=== PATIENT | female | born 1935 | race African-American/Black ===

== ENCOUNTER 2017-07-21 06:04 | Day surgery (SDC) | payer MEDICARE ==
--- NOTE | 2017-07-20 11:33 | Pre-Procedure Note/Attestation ---
Pre-Procedure Note/Attestation Complete Prior to Procedure Planned Procedure: right Procedure Narrative: PHACO WITH iol Indications for Procedure Pre-Operative Diagnosis: CATARACT Attestation I attest that I discussed the nature of the procedure; its benefits; risks and complications; and alternatives (and the risks and benefits of such alternatives ), prior to the procedure, with the patient (or the patient's legal field sales representative). I attest that, if there was a reasonable possibility of needing a blood transfusion, the patient (or the patient's legal field sales representative) was given the [facility] standardized written summary, pursuant to the [place] Blood Safety Act ([place] Health and Safety Code # 1645, as amended). I attest that I re-evaluated the patient just prior to the surgery and that there has been no change in the patient's H&P, except as documented below: TABITHA PASCUAL Jul 20, 2017 11:33
--- NOTE | 2017-07-20 13:45 | Opthalmology H&P ---
Ophthalmology H&P H&P Chief Complaint: decreased vision in right eye HPI Vision Affects Ability to: read, focus/use eyes together, manage personal affairs HPI Narrative blurry vision Exam Visual Acuity: OD: 20/60 OS: 20/40 Tension: OD: 16 OS: 16 Eye Exam: normal OU: external exam, palpebral fissure-width, marginal reflex distance, levator function, corneas, anterior chambers, findings: lens - OD; ns OS: ns, fundus exam - OD: 0.5 cd OS: 0.5 cd Assessment/Plan Diagnosis: (1) Cataract Treatment Plan: cataract extraction w/ lens implant Goals of Treatment: improvement of vision, enhance quality of life Attestation Attestation The risks and benefits of the surgery as well as alternative procedures were explained to the patient in detail. TABITHA PASCUAL Jul 20, 2017 13:45
[2017-07-21] VITALS (10 sets, daily range): BP systolic 122–158; BP diastolic 51–74
[~2017-07-21] VITALS: Ht 157.5 cm; Wt 63.5 kg
[2017-07-21] MEDS ORDERED: Akten 3.5% 1ml Btl RIGHT EYE ONE (07:00)
[2017-07-21] MEDS: Ketorolac Tromethamine Opth 5ml Soln RIGHT EYE SCH ×3 (07:15→07:33)
[2017-07-21] MEDS: Tropicamide 1% Opth 15ml Soln RIGHT EYE SCH ×3 (07:15→07:33)
[2017-07-21] MEDS: Cyclopentolate 1% Opth Sol 2ml RIGHT EYE SCH ×3 (07:16→07:33)
[2017-07-21] MEDS: Phenylephrine 10% Opth Soln 5ml RIGHT EYE SCH ×3 (07:16→07:33)
[2017-07-21] MEDS: Tobramycin Op Soln 0.3% 5ml RIGHT EYE SCH ×3 (07:16→07:33)
[2017-07-21] MEDS ORDERED: PRAVASTATIN SOD20 M1 ORAL (07:57)
[2017-07-21] MEDS ORDERED: ALEVE220 M2 PO (07:57)
[2017-07-21] MEDS ORDERED: CLOPIDOGREL75 MG ORAL (07:57)
[2017-07-21] MEDS ORDERED: HYDRALAZINE HC100 MG ORAL (07:57)
[2017-07-21] MEDS ORDERED: LATANOPROST2.5 ML BOTH EYES (07:57)
[2017-07-21] MEDS ORDERED: AMLODIPINE BESY10 MG ORAL (07:57)
[2017-07-21] MEDS ORDERED: ANASTROZOLE1 MG PO (07:57)
[2017-07-21] MEDS ORDERED: EPINEPHrine 1mg/1ml Amp ONE (08:30)
[2017-07-21] MEDS ORDERED: Pred Forte 1% Opth Susp 1ml ONE (08:30)
[2017-07-21] MEDS ORDERED: fentaNYL 100 mcg/2 mL IV ONE (08:30)
[2017-07-21] MEDS ORDERED: Maxitrol Opth Oint 3.5gm ONE (08:30)
[2017-07-21] MEDS ORDERED: LR 1000ml ONE (08:30)
[2017-07-21] MEDS ORDERED: Propofol 200mg/20ml IV ONE (08:30)
[2017-07-21] MEDS ORDERED: NS Irrig 1000ml ONE (08:30)
[2017-07-21] MEDS ORDERED: Dexamethasone 4mg/ml vial ONE (08:30)
[2017-07-21] MEDS ORDERED: Tetracaine 0.5% Opth 4ml Soln ONE (08:30)
[2017-07-21] MEDS ORDERED: Midazolam 2mg/2ml Inj ONE (08:30)
[2017-07-21] MEDS ORDERED: BSS 500ml btl ONE (08:30)
[2017-07-21] MEDS ORDERED: Sterile Water Irrig 1000ml IRRIG ONE (08:30)
[2017-07-21] MEDS ORDERED: LR 1000ml 1,000 ML IVLG SCH (08:49)
--- NOTE | 2017-07-21 08:49 | Anethesia Preoperative Eval ---
Anesthesia Pre-op PMH/ROS General Date of Evaluation: Jul 21, 2017 Time of Evaluation: 08:21 Anesthesiologist: Cecily ASA Score: ASA 3 Mallampati Score Class I : Soft palate, uvula, fauces, pillars visible Class II: Soft palate, uvula, fauces visible Class III: Soft palate, base of uvula visible Class IV: Only hard plate visible Mallampati Classification: Class II Surgeon: Ainsley Diagnosis: R eye cataract Surgical Procedure: Janett cataract extraction Anesthesia History: none Family History: no anesthesia problems Allergies: Coded Allergies: PATTIE INHIBITORS (Verified Allergy, Mild, 07/21/17) tongue swells Medications: see eMAR Past Medical History Cardiovascular: Reports: HTN, Denies: CAD, [place], valve dz, arrhythmia, other Pulmonary: Denies: asthma, COPD, ANUP, other Gastrointestinal/Genitourinary: Reports: GERD, Denies: CRI, ESRD, other Neurologic/Psychiatric: Reports: depression/anxiety, Denies: dementia, CVA, TIA, other Endocrine: Denies: DM, hypothyroidism, steroids, other HEENT: Reports: cataract (L), cataract (R), glaucoma - bilateral, Denies: [place] (L), [place] (R), other Hematology/Immune: Reports: other - R breast CA s/p Sx, Denies: anemia, DVT, bleeding disorder Musculoskeletal/Integumentary: Reports: DJD, Denies: OA, RA, DDD, edema, other PMH Narrative: as above PSxH Narrative: see H&P Anesthesia Pre-op Phys. Exam Physician Exam Last Vital Signs Date Time Temp Pulse Resp B/P (MAP) Pulse Ox O2 Delivery O2 Flow Rate FiO2 07/21/17 07:27 97.3 59 18 123/51 100 Room Air Constitutional: NAD Neurologic: CN 2-12 intact Cardiovascular: RRR, no M/R/G Respiratory: CTA Gastrointestinal: S/NT/ND Airway Exam Mallampati Score: Class II MO: limited Neck: stiff ROM: limited Teeth: missing Dentures: upper, lower Anesthesia Pre-op A/P Labs see chart Risk Assessment & Plan Assessment: ASA 3 Plan: MAC Status Change Before Surgery: No Pre-Antibiotics Drug: none PRAFUL CARLSON M.D. Jul 21, 2017 08:48
[2017-07-21] MEDS ORDERED: DiphenhydrAMINE 50mg/ml Inj IVP PRN (09:00)
[2017-07-21] MEDS ORDERED: fentaNYL 100 mcg/2 mL IV PRN (09:00)
--- NOTE | 2017-07-21 09:34 | Immediate Post-Op Evaluation ---
Immediate Post-Op Evalulation Immediate Post-Op Evalulation Procedure: R eye cataract extraction with IOL Date of Evaluation: Jul 21, 2017 Time of Evaluation: 09:02 IV Fluids: 200 Blood Products: none Estimated Blood Loss: none Urinary Output: none Blood Pressure Systolic: 154 Blood Pressure Diastolic: 76 Pulse Rate: 70 Respiratory Rate: 20 O2 Sat by Pulse Oximetry: 99 Temperature (Fahrenheit): 97.6 Pain Score (1-10): 1 Nausea: No Vomiting: No Complications none Patient Status: awake, patent, none Hydration Status: adequate PRAFUL CARLSON M.D. Jul 21, 2017 09:34
--- NOTE | 2017-07-21 13:40 | 48 Hour Post Anesthesia Eval ---
Post Anesthesia Evaluation Procedure: R eye cataract extraction with IOL Date of Evaluation: Jul 21, 2017 Time of Evaluation: 10:24 Blood Pressure Systolic: 158 0: 74 Pulse Rate: 64 Respiratory Rate: 20 Temperature (Fahrenheit): 97.6 O2 Sat by Pulse Oximetry: 98 Airway: patent Nausea: No Vomiting: No Pain Intensity: 1 Hydration Status: adequate Cardiopulmonary Status: stable Mental Status/LOC: patient returned to baseline Follow-up Care/Observations: n/a Post-Anesthesia Complications: none Follow-up care needed: ready to discharge PRAFUL CARLSON M.D. Jul 21, 2017 13:40
[2017-07-21] MEDS ORDERED: Pilocarpine 2% Opth 15ml Soln ONE (15:04)
[2017-07-21] MEDS ORDERED: Povidone-Iodine 5% opth solution ONE (15:04)
[2017-07-21] MEDS ORDERED: Sodium Hyaluronate 14 mg/ml 0.85ml ONE (15:04)
[2017-07-21] MEDS ORDERED: BSS 15ml BTL ONE (15:04)
--- NOTE | 2017-07-23 18:40 | Cardiology Report ---
APPROVED REPORT EKG Measurement Heart [id number] NM 166P64 [id number] Sinus bradycardia Left bundle branch block Abnormal ECG
--- NOTE | 2017-07-24 09:12 | Brief Operative Note ---
Immediate Post Operative Note Operative Note Chief Complaint: blurry vison, OD Pre-op Diagnosis: CATARACT, OD Procedure: phaco with IOL, OD Post-op Diagnosis: Pseudophakia Post-op Diagnosis: same as pre-op Findings: consistent w/pre-op dx studies Surgeon: Ainsley Anesthesiologist: Cecily Anesthesia: MAC Specimen: none Complications: none Condition: stable Fluids: LR Estimated Blood Loss: none Drains: none Implant(s) used?: Yes TABITHA PASCUAL Jul 24, 2017 09:12
--- NOTE | 2017-07-25 09:10 | Operative Note - PDOC ---
Operative Note Operative Note Date of Operation/Procedure: Jul 21, 2017 Chief Complaint: blurry vison, OD Pre-op Diagnosis: CATARACT, OD Procedure: phaco with IOL, OD Post-op Diagnosis: Pseudophakia Post-op Diagnosis: same as pre-op Operative Findings: consistent w/pre-op dx studies Surgeon: Ainsley Anesthesiologist: Cecily Anesthesia: MAC Specimen: none Complications: none Condition: stable Fluids: LR Estimated Blood Loss: none Drains: none Implant(s) used?: Yes Indications for Procedure cataract Description of Procedure This patient has been complaining visually significant cataract in the affected eye with the best corrected visual acuity under moderate glare conditions worse. The patient complains of difficulties with glare in performing activities of daily living and wants to manage personal affairs with comfort and accuracy and see well enough to move with safety at home and outdoors. The risks, benefits and alternatives of the procedure were discussed with the patient in the office prior to scheduling surgery. All questions from the patient were answered after the surgical procedure was explained in detail. The risks of the procedure as explained to the patient include, but are not limited to, pain, infection, bleeding, loss of vision, retinal detachment, need for further surgery, loss of lens nucleus, double vision, etc. Alternative procedures were discussed which include, to do nothing or seek a second opinion. Informed consent for this procedure was obtained from the patient. The patient was referred to a primary care physician for a cardiopulmonary clearance prior to surgery, after proper evaluation was done patient was properly scheduled for outpatient surgery. The patient was brought to the operating room where the anesthesiologist established I.V. lines and cardiac monitoring leads. Mild intravenous sedation was administered. The patient was then prepared with a 5% solution of povidone- iodine to the conjunctival fornix and lashes, and a 5% solution of povidone- iodine to the lids and periorbital skin. The patient was then draped in the usual sterile fashion. A lid speculum was then placed in the operative eye. A keratome blade was then used to create a biplanar incision into the anterior chamber. Viscoelastics was then instilled into the anterior chamber. A capsulorrhexis was then fashioned with an utrata forceps. BSS and a cannula were then used to hydrodissect and hydro delineate the lens. Paracentesis incision was made at 3 o'clock with sharp blade. The phacoemulsification unit, after being properly adjusted and tested, was then used to emulsify the nucleus followed by aspiration and irrigation of residual cortical material using the aspiration unit. Healon was then instilled into the anterior chamber. The corneal wound was then enlarged to the size of the optic with the roland keratome blade. The intraocular lens was then inspected for right power and size and thought to be satisfactory. Then the lens was gently placed in the capsular bag. Positioning within the capsular bag was confirmed by direct visualization. Optic centration was accomplished with a Sinskey hook. Viscoelastics was removed from the anterior chamber using the irrigation and aspiration unit. The corneal wound was then tested for leaks and none were found. The lid speculum were then removed. Sponge and needle counts were correct. An eye patch and shield were placed over the operative eye. The patient was taken to the recovery room in stable condition. There were no complications. The patient tolerated the procedure well. The patient was then transferred to the ambulatory surgery unit in stable and satisfactory condition , was given detailed written instructions and asked to follow up in the office the next day. Dictated & Transcribed: [facility] Kiley MCGUIRE JAMES Jul 25, 2017 09:10
== END 2017-07-21 10:30 | disposition home or self-care (01) ==
LOC: SUR 06:04 → EDBD 08:30 → SUR 09:45
DX: H26.9 Unspecified cataract (principal); I10 Essential (primary) hypertension; K21.9 Gastro-esophageal reflux disease without esophagitis; F32.9 Major depressive disorder, single episode, unspecified; F41.9 Anxiety disorder, unspecified; M19.90 Unspecified osteoarthritis, unspecified site; H40.9 Unspecified glaucoma; E78.2 Mixed hyperlipidemia; I49.9 Cardiac arrhythmia, unspecified; Z86.73 Personal history of transient ischemic attack (TIA), and cerebral infarction without residual deficits; I44.7 Left bundle-branch block, unspecified; R00.1 Bradycardia, unspecified
CPT/HCPCS: 66984; 93005; J0171; J1100; J2250; J2704; J3010; J3370; J7120; V2632; 94003; 94150

== ENCOUNTER 2018-06-11 05:57 | Day surgery (SDC) | payer MEDICARE ==
--- NOTE | 2018-06-06 16:45 | Pre-Procedure Note/Attestation ---
Pre-Procedure Note/Attestation Complete Prior to Procedure Planned Procedure: left Procedure Narrative: phaco with IOL Indications for Procedure Pre-Operative Diagnosis: cataract Attestation I attest that I discussed the nature of the procedure; its benefits; risks and complications; and alternatives (and the risks and benefits of such alternatives ), prior to the procedure, with the patient (or the patient's legal territory service representative). I attest that, if there was a reasonable possibility of needing a blood transfusion, the patient (or the patient's legal territory service representative) was given the [facility] standardized written summary, pursuant to the [place] Blood Safety Act ([place] Health and Safety Code # 1645, as amended). I attest that I re-evaluated the patient just prior to the surgery and that there has been no change in the patient's H&P, except as documented below: TABITHA PASCUAL Jun 06, 2018 16:45
--- NOTE | 2018-06-06 16:46 | Opthalmology H&P ---
Ophthalmology H&P H&P Chief Complaint: decreased vision in left eye HPI Vision Affects Ability to: read, focus/use eyes together, manage personal affairs HPI Narrative blurry vision Exam Visual Acuity: OD: 20/70 OS: 20/50 Tension: OD: 14 OS: 16 Eye Exam: normal OU: external exam, palpebral fissure-width, marginal reflex distance, levator function, corneas, anterior chambers, fundus exam; findings: lens - OD: IOL OS: ns Assessment/Plan Diagnosis: (1) Nuclear age-related cataract, left eye Treatment Plan: cataract extraction w/ lens implant Goals of Treatment: improvement of vision, enhance quality of life Attestation Attestation The risks and benefits of the surgery as well as alternative procedures were explained to the patient in detail. TABITHA PASCUAL Jun 06, 2018 16:46
[2018-06-11] VITALS (8 sets, daily range): BP systolic 113–139; BP diastolic 62–76
[~2018-06-11] VITALS: Ht 157.5 cm; Wt 64.4 kg
[~2018-06-11 05:57] MED LIST: ALEVE220 M2 PO; AMLODIPINE BESY10 MG ORAL; ANASTROZOLE1 MG PO; CLOPIDOGREL75 MG ORAL; HYDRALAZINE HC100 MG ORAL; LATANOPROST2.5 ML BOTH EYES; PRAVASTATIN SOD20 M1 ORAL
[2018-06-11] MEDS ORDERED: Akten 3.5% 1ml Btl LEFT EYE ONE (07:00)
[2018-06-11] MEDS ORDERED: Proparacaine 0.5% Opth Soln 15ml LEFT EYE ONE (07:00)
[2018-06-11] MEDS ORDERED: Tetracaine 0.5% Opth 4ml Soln LEFT EYE ONE (07:00)
[2018-06-11] MEDS ORDERED: Pred Forte 1% Opth Susp 1ml ONE (07:00)
[2018-06-11] MEDS ORDERED: Pilocarpine 2% Opth 15ml Soln ONE (07:00)
[2018-06-11] MEDS ORDERED: Diclofenac Sod 0.1% Op Soln LEFT EYE SCH (07:00)
[2018-06-11] MEDS ORDERED: Dexamethasone 4mg/ml vial ONE (07:00)
[2018-06-11] MEDS ORDERED: Maxitrol Opth Oint 3.5gm ONE (07:00)
[2018-06-11] MEDS: Cyclopentolate 1% Opth Sol 2ml LEFT EYE SCH ×3 (07:31→07:59)
[2018-06-11] MEDS: Tropicamide 1% Opth 15ml Soln LEFT EYE SCH ×3 (07:32→07:59)
[2018-06-11] MEDS: Phenylephrine 10% Opth Soln 5ml LEFT EYE SCH ×3 (07:32→07:59)
[2018-06-11] MEDS: Tobramycin Op Soln 0.3% 5ml LEFT EYE SCH ×3 (07:33→07:59)
[2018-06-11] MEDS ORDERED: NORCO 7.5/3251 EA ORAL (08:27)
[2018-06-11] MEDS ORDERED: ASPIR 8181 MG ORAL (08:27)
[2018-06-11 08:28] LABS: EOSINOPHILS % (AUTO) 4.3 % (0.0-3.0); HEMATOCRIT 43.6 % (37.0-47.0); LYMPHOCYTES % (AUTO) 51.8 % (20.0-45.0); MEAN CORPUSCULAR VOLUME 90 FL (80-99); NEUTROPHILS % (AUTO) 35.9 % (45.0-75.0); PLATELET COUNT 250 K/UL (150-450); RED BLOOD COUNT 4.86 M/UL (4.20-5.40); RED CELL DISTRIBUTION WIDTH 12.7 % (11.6-14.8); WHITE BLOOD COUNT 4.6 K/UL (4.8-10.8)
[2018-06-11 08:37] LABS: ANION GAP 8 mmol/L (5-15); BLOOD UREA NITROGEN 9 mg/dL (7-18); CALCIUM 9.7 MG/DL (8.5-10.1); CARBON DIOXIDE 28 MMOL/L (21-32); CHLORIDE 107 MMOL/L (98-107); CREATININE 0.7 MG/DL (0.55-1.30); POTASSIUM 4.9 MMOL/L (3.5-5.1); SODIUM 143 MMOL/L (136-145)
[2018-06-11] MEDS ORDERED: LR 1000ml 1,000 ML IVLG SCH (09:25)
--- NOTE | 2018-06-11 09:25 | Anethesia Preoperative Eval ---
Anesthesia Pre-op PMH/ROS General Date of Evaluation: Jun 11, 2018 Time of Evaluation: 09:22 Anesthesiologist: Cecily ASA Score: ASA 3 Mallampati Score Class I : Soft palate, uvula, fauces, pillars visible Class II: Soft palate, uvula, fauces visible Class III: Soft palate, base of uvula visible Class IV: Only hard plate visible Mallampati Classification: Class II Surgeon: Ainsley Diagnosis: L eye cataract Surgical Procedure: L eye cataract extraction Anesthesia History: none Family History: no anesthesia problems Allergies: Coded Allergies: PATTIE INHIBITORS (Verified Allergy, Mild, 07/21/17) tongue swells Medications: see eMAR Past Medical History Cardiovascular: Reports: HTN; Denies: CAD, [place], valve dz, arrhythmia, other Pulmonary: Denies: asthma, COPD, ANUP, other Gastrointestinal/Genitourinary: Reports: GERD; Denies: CRI, ESRD, other Neurologic/Psychiatric: Reports: depression/anxiety; Denies: dementia, CVA, TIA, other Endocrine: Denies: DM, hypothyroidism, steroids, other HEENT: Reports: cataract (L), cataract (R), glaucoma Hematology/Immune: Reports: other - Breast CA s/p Sx; Denies: anemia, DVT, bleeding disorder Musculoskeletal/Integumentary: Reports: DJD; Denies: OA, RA, DDD, edema, other PMH Narrative: as above PSxH Narrative: see chart Anesthesia Pre-op Phys. Exam Physician Exam Last Vital Signs Date Time Temp Pulse Resp B/P (MAP) Pulse Ox O2 Delivery O2 Flow Rate FiO2 06/11/18 08:21 Room Air 06/11/18 07:41 97.8 57 20 139/76 (97) 100 97.8 Constitutional: NAD Neurologic: CN 2-12 intact Cardiovascular: RRR, no M/R/G Respiratory: CTA Gastrointestinal: S/NT/ND Airway Exam Mallampati Score: Class II MO: limited Neck: stiff ROM: limited Teeth: missing Dentures: no upper, no lower Anesthesia Pre-op A/P Labs Hematology Test 06/11/18 07:15 White Blood Count 4.6 K/UL (4.8-10.8) L Red Blood Count 4.86 M/UL (4.20-5.40) Hemoglobin 15.0 G/DL (12.0-16.0) Hematocrit 43.6 % (37.0-47.0) Mean Corpuscular Volume 90 FL (80-99) Mean Corpuscular Hemoglobin 30.8 PG (27.0-31.0) Mean Corpuscular Hemoglobin Concent 34.4 G/DL (32.0-36.0) Red Cell Distribution Width 12.7 % (11.6-14.8) Platelet Count 250 K/UL (150-450) Mean Platelet Volume 7.0 FL (6.5-10.1) Neutrophils (%) (Auto) 35.9 % (45.0-75.0) L Lymphocytes (%) (Auto) 51.8 % (20.0-45.0) H Monocytes (%) (Auto) 6.0 % (1.0-10.0) Eosinophils (%) (Auto) 4.3 % (0.0-3.0) H Basophils (%) (Auto) 2.0 % (0.0-2.0) Chemistry Test 06/11/18 07:15 Sodium Level 143 MMOL/L (136-145) Potassium Level 4.9 MMOL/L (3.5-5.1) Chloride Level 107 MMOL/L (98-107) Carbon Dioxide Level 28 MMOL/L (21-32) Anion Gap 8 mmol/L (5-15) Blood Urea Nitrogen 9 mg/dL (7-18) Creatinine 0.7 MG/DL (0.55-1.30) Estimat Glomerular Filtration Rate mL/min (>60) Glucose Level 90 MG/DL (74-106) Calcium Level 9.7 MG/DL (8.5-10.1) Studies Pre-op Studies: EKG - R Risk Assessment & Plan Assessment: ASA 3 Plan: MAC Status Change Before Surgery: No Pre-Antibiotics Drug: none Keo Tony MD Jun 11, 2018 09:25
[2018-06-11] MEDS ORDERED: Midazolam 2mg/2ml Inj ONE (09:27)
[2018-06-11] MEDS ORDERED: EPINEPHrine 1mg/1ml Amp ONE (09:28)
[2018-06-11] MEDS ORDERED: Carbachol 0.01% Op Soln 1.5ml vial ONE (09:29)
[2018-06-11] MEDS ORDERED: Povidone-Iodine 5% opth solution ONE (09:29)
[2018-06-11] MEDS ORDERED: BSS 500ml btl ONE (09:29)
[2018-06-11] MEDS ORDERED: acetaZOLAMIDE 500mg Inj ONE (09:29)
[2018-06-11] MEDS ORDERED: BSS 15ml BTL ONE (09:29)
[2018-06-11] MEDS ORDERED: Lidocaine 2% MPF 5ml Vial INJ ONE (09:29)
[2018-06-11] MEDS ORDERED: fentaNYL 100 mcg/2 mL IV PRN (09:30)
[2018-06-11] MEDS ORDERED: Sodium Hyaluronate 14 mg/ml 0.85ml ONE (09:30)
[2018-06-11] MEDS ORDERED: DiphenhydrAMINE 50mg/ml Inj IVP PRN (09:30)
[2018-06-11] MEDS ORDERED: Lidocaine 4% Amp ONE (09:46)
[2018-06-11] MEDS ORDERED: Propofol 200mg/20ml IV ONE (10:00)
[2018-06-11] MEDS ORDERED: NS Irrig 1000ml ONE (10:00)
[2018-06-11] MEDS ORDERED: Sterile Water Irrig 1000ml IRRIG ONE (10:00)
[2018-06-11] MEDS ORDERED: LR 1000ml ONE (10:00)
--- NOTE | 2018-06-11 11:18 | Immediate Post-Op Evaluation ---
Immediate Post-Op Evalulation Immediate Post-Op Evalulation Procedure: Leye cataract extraction with IOL Date of Evaluation: Jun 11, 2018 Time of Evaluation: 10:24 IV Fluids: 200 Blood Products: none Estimated Blood Loss: none Urinary Output: none Blood Pressure Systolic: 136 Blood Pressure Diastolic: 72 Pulse Rate: 68 Respiratory Rate: 20 O2 Sat by Pulse Oximetry: 98 Temperature (Fahrenheit): 97.5 Pain Score (1-10): 1 Nausea: No Vomiting: No Complications none Patient Status: reacts, patent, none Hydration Status: adequate Keo Tony MD Jun 11, 2018 11:18
--- NOTE | 2018-06-11 12:07 | 48 Hour Post Anesthesia Eval ---
Post Anesthesia Evaluation Procedure: Leye cataract extraction with IOL Date of Evaluation: Jun 11, 2018 Time of Evaluation: 12:04 Blood Pressure Systolic: 128 0: 76 Pulse Rate: 68 Respiratory Rate: 20 Temperature (Fahrenheit): 97.5 O2 Sat by Pulse Oximetry: 98 Airway: patent Nausea: No Vomiting: No Pain Intensity: 2 Hydration Status: adequate Cardiopulmonary Status: stable Mental Status/LOC: patient returned to baseline Follow-up Care/Observations: n/a Post-Anesthesia Complications: none Follow-up care needed: ready to discharge Keo Tony MD Jun 11, 2018 12:07
--- NOTE | 2018-06-12 14:23 | Cardiology Report ---
APPROVED REPORT EKG Measurement Heart [id number] NE 144P12 [id number] Sinus bradycardia Left axis deviation Left bundle branch block Abnormal ECG
--- NOTE | 2018-06-12 17:04 | Brief Operative Note ---
Immediate Post Operative Note Operative Note Chief Complaint: blurry vision Pre-op Diagnosis: cataract, OS Procedure: phaco with IOL Post-op Diagnosis: Pseudophakia Post-op Diagnosis: same as pre-op Findings: consistent w/pre-op dx studies Surgeon: Ainsley Anesthesiologist: Cecily Anesthesia: MAC Specimen: none Complications: none Condition: stable Fluids: LR Estimated Blood Loss: none Drains: none Implant(s) used?: Yes TABITHA PASCUAL Jun 12, 2018 17:04
--- NOTE | 2018-06-13 09:10 | Operative Note - PDOC ---
Operative Note Operative Note Date of Operation/Procedure: Jun 11, 2018 Chief Complaint: blurry vision Pre-op Diagnosis: cataract, OS Procedure: phaco with IOL Post-op Diagnosis: Pseudophakia Post-op Diagnosis: same as pre-op Operative Findings: consistent w/pre-op dx studies Surgeon: Ainsley Anesthesiologist: Cecily Anesthesia: MAC Specimen: none Complications: none Condition: stable Fluids: LR Estimated Blood Loss: none Drains: none Implant(s) used?: Yes Indications for Procedure cataract Description of Procedure This patient has been complaining visually significant cataract in the affected eye with the best corrected visual acuity under moderate glare conditions worse. The patient complains of difficulties with glare in performing activities of daily living and wants to manage personal affairs with comfort and accuracy and see well enough to move with safety at home and outdoors. The risks, benefits and alternatives of the procedure were discussed with the patient in the office prior to scheduling surgery. All questions from the patient were answered after the surgical procedure was explained in detail. The risks of the procedure as explained to the patient include, but are not limited to, pain, infection, bleeding, loss of vision, retinal detachment, need for further surgery, loss of lens nucleus, double vision, etc. Alternative procedures were discussed which include, to do nothing or seek a second opinion. Informed consent for this procedure was obtained from the patient. The patient was referred to a primary care physician for a cardiopulmonary clearance prior to surgery, after proper evaluation was done patient was properly scheduled for outpatient surgery. The patient was brought to the operating room where the anesthesiologist established I.V. lines and cardiac monitoring leads. Mild intravenous sedation was administered. The patient was then prepared with a 5% solution of povidone -iodine to the conjunctival fornix and lashes, and a 5% solution of povidone- iodine to the lids and periorbital skin. The patient was then draped in the usual sterile fashion. A lid speculum was then placed in the operative eye. A keratome blade was then used to create a biplanar incision into the anterior chamber. Viscoelastics was then instilled into the anterior chamber. A capsulorrhexis was then fashioned with an utrata forceps. The lens nucleus was hydrodissected and hydrodelineated with a G 27 Cannula. Paracentesis incision was made at 3 o'clock with sharp blade. The phacoemulsification unit, after being properly adjusted and tested, was then used to emulsify the nucleus followed by aspiration and irrigation of residual cortical material. Healon was then instilled into the anterior chamber. The corneal wound was then enlarged to the size of the optic with the roland keratome blade. The intraocular lens was then inspected for right power and size and thought to be satisfactory. Then the lens was gently placed in the capsular bag. Positioning within the capsular bag was confirmed by direct visualization. Optic centration was accomplished with a Sinskey hook. Viscoelastics was removed from the anterior chamber using the irrigation and aspiration unit. The corneal wound was then tested for leaks and none were found. The lid speculum were then removed. Sponge and needle counts were correct. An eye patch and shield were placed over the operative eye. The patient was taken to the recovery room in stable condition. There were no complications. The patient tolerated the procedure well. The patient was then transferred to the ambulatory surgery unit in stable and satisfactory condition , was given detailed written instructions and asked to follow up in the office the next day. TABITHA PASCUAL Jun 13, 2018 09:10
== END 2018-06-11 11:30 | disposition home or self-care (01) ==
LOC: SUR 05:57
DX: H25.12 Age-related nuclear cataract, left eye (principal); I10 Essential (primary) hypertension; K21.9 Gastro-esophageal reflux disease without esophagitis; F32.9 Major depressive disorder, single episode, unspecified; F41.9 Anxiety disorder, unspecified; M19.90 Unspecified osteoarthritis, unspecified site; R00.1 Bradycardia, unspecified; Z86.73 Personal history of transient ischemic attack (TIA), and cerebral infarction without residual deficits; Z88.8 Allergy status to other drugs, medicaments and biological substances
CPT/HCPCS: 36415; 66984; 80048; 85025; 93005; 99282; J0171; J1100; J2250; J2704; J3010; J3370; V2632; 94003; 94150